=== PATIENT | male | born 1980 | race Caucasian/White ===

== ENCOUNTER 2025-02-21 09:25 | Emergency (ER) | payer OTHER, SELFPAY ==
[2025-02-21] VITALS (20 sets, daily range): BP systolic 89–119; BP diastolic 65–86
--- NOTE | 2025-02-21 09:42 | ED.GENMED ---
History of Present Illness
<Miguel Abdul PA-C - Last Filed: 02/21/25 15:05>
General
Chief Complaint: Substance Abuse
Time Seen by Provider: 02/21/25 09:41
History of Present Illness
History of Present Illness:
44-year-old male presents to the emergency department for evaluation of a reported overdose. Known history of polysubstance abuse, apparently was taken to his methadone clinic this morning apneic and unresponsive where he was referred to the ED.
On arrival the patient is responsive only to painful stimuli, according to a close friend he used heroin most recently at 630 today. Patient when aroused also admits to '14 mg of Klonopin or so'. He states that he took at least 4 mg of Klonopin
this morning alone. Denies SI.
Past History
<Miguel Abdul PA-C - Last Filed: 02/21/25 15:05>
Past History
ED Past Medical History: Other
Social History
Tobacco: Smoker
Alcohol: None
Drug: Former user
Personal: Single
Living: with family
Family History
Family History: Negative Diabetes or CAD
Review of Systems
<Miguel Abdul PA-C - Last Filed: 02/21/25 15:05>
Review of Systems
Allergies reviewed?: Yes
All Other Systems: ROS reviewed and negative except as documented in HPI and ROS
Phy Exam
<Miguel Abdul PA-C - Last Filed: 02/21/25 15:05>
Physical Exam
Physical Exam:
GEN: Well appearing, NAD, WDWN
HEENT: Pinpoint pupils, oral mucosa moist, no scleral icterus
Cardiac: Bradycardic, regular
Lung: Bradycardia apneic and hypopneic, globally clear lungs with transmitted upper airway sounds
MSK: No gross deformity or injuries
Skin: Good color, no pallor or jaundice, no rashes
Neuro: Somnolent, initially arousable to forceful tactile stimuli, moving all extremities when agitated
Psych: Calm, cooperative
Course
<Miguel Abdul PA-C - Last Filed: 02/21/25 15:05>
Orders/Labs/Results
Orders:
Orders
02/21/25 09:37
Naloxone [Narcan] 2 mg .ROUTE .STK-MED ONE
02/21/25 09:42
Electrocardiogram (*1) Urgent
Reason for Study: QTc Monitoring
EKG- Treatment ONCE
02/21/25 09:50
Naloxone [Narcan] 0.4 mg IV NOW STA
02/21/25 Lunch
NPO
Allow oral meds: No
Allow clear liquids: No
02/21/25 10:21
0.9% Sodium Chloride 1000 ml [Nss] 1,000 ml IV BOLUS
02/21/25 10:24
Complete Blood Count/With Diff Urgent
Comprehensive Metabolic Panel Urgent
Abnormal Lab Results
02/21/25
10:24
Carbon Dioxide 31 H mmol/L
(22-30)
BUN 21 H mg/dl
(9-20)
Glucose 116 H mg/dl
(70-99)
ALT 72 H U/L
(0-50)
02/21/25 10:24
02/21/25 10:24
Vital Signs
Initial and Last Documented VS:
Initial Vital Signs
Pulse Resp BP Pulse Ox
52 12 108/66 100
02/21/25 09:32 02/21/25 09:32 02/21/25 09:32 02/21/25 09:32
Last Documented Vital Signs
Pulse Resp BP Pulse Ox
49 12 111/73 98
02/21/25 14:40 02/21/25 14:40 02/21/25 14:30 02/21/25 14:40
<Kye Schaeffer MD - Last Filed: 02/21/25 15:46>
Orders/Labs/Results
Orders:
Orders
02/21/25 09:37
Naloxone [Narcan] 2 mg .ROUTE .STK-MED ONE
02/21/25 09:42
Electrocardiogram (*1) Urgent
Reason for Study: QTc Monitoring
EKG- Treatment ONCE
02/21/25 09:50
Naloxone [Narcan] 0.4 mg IV NOW STA
02/21/25 Lunch
NPO
Allow oral meds: No
Allow clear liquids: No
02/21/25 10:21
0.9% Sodium Chloride 1000 ml [Nss] 1,000 ml IV BOLUS
02/21/25 10:24
Complete Blood Count/With Diff Urgent
Comprehensive Metabolic Panel Urgent
Abnormal Lab Results
02/21/25
10:24
Carbon Dioxide 31 H mmol/L
(22-30)
BUN 21 H mg/dl
(9-20)
Glucose 116 H mg/dl
(70-99)
ALT 72 H U/L
(0-50)
02/21/25 10:24
02/21/25 10:24
Vital Signs
Initial and Last Documented VS:
Initial Vital Signs
Pulse Resp BP Pulse Ox
52 12 108/66 100
02/21/25 09:32 02/21/25 09:32 02/21/25 09:32 02/21/25 09:32
Last Documented Vital Signs
Pulse Resp BP Pulse Ox
49 12 111/73 98
02/21/25 14:40 02/21/25 14:40 02/21/25 14:30 02/21/25 14:40
Procedures
<Miguel Abdul PA-C - Last Filed: 02/21/25 15:05>
IV Access
Indication: Emergent access required
Performed by:: Miguel Abdul PA-C
Site:: R basilic
Gauge:: 20
Ultrasound Guidance: Yes
<Miguel Abdul PA-C - Last Filed: 02/21/25 15:05>
MDM/Problems Addressed
MDM/Problems Addressed:
Due to somnolence and apnea the patient was ultimately administered a small dose of naloxone which did improve his mental status. He was observed in the ED for extended period of time and did not require further naloxone. He was offered resources
through crisis and B cares but declined these. He denies suicidal or homicidal ideation or any desire to go to rehab or detox at this point. Ultimately discharged home
<Miguel Abdul PA-C - Last Filed: 02/21/25 15:05>
*Pulse Oximetry
SaO2: 100
Oxygen Mode of Delivery: Room air
Patient hypoxic: no
*Critical Care Note
Total Time (30-74mins, 75-104mins- exclusive of procedures): Not Applicable
<Miguel Abdul PA-C - Last Filed: 02/21/25 15:05>
Update Note
Update Note:
0951: Patient placed on end-tidal, noted to be markedly hypercapnic and unresponsive to forceful tactile stimuli, given 0.4 mg of naloxone with immediate improvement in respiratory status
1125: Pt remains somnolent, difficult to arouse however maintaining airway, ETCO2 adequate
ED Attending Note
<Miguel Abdul PA-C - Last Filed: 02/21/25 15:05>
-
Portions of this chart may have been created with voice recognition software.� Occasional wrong word or��sound alike� substitutions may have occurred due to the inherent limitations of voice recognition software.
<Kye Schaeffer MD - Last Filed: 02/21/25 15:46>
ED Attending Note
Patient seen and examined by attending physician: Yes
ED Attending Note:
Patient with history of polysubstance abuse, currently on maintenance methadone program, presents to ED after he was found to be difficult to be aroused by his girlfriend this morning. Girlfriend took the patient to his outpatient methadone clinic,
where she was told that patient needs to be seen in ED immediately, due to his depressed mental status. Upon arrival, patient is somnolent, but arousable to loud voice along with physical stimuli. Per girlfriend, patient has admittedly taken
number of medications, including heroin and benzodiazepine. Unable to obtain any further information from the patient.
Physical Exam
General: no apparent distress, not acutely ill. afebrile.
Head: nc/at. eomi
Neck: supple. normal range of motion.
Heart: s1/s2 regular rate and rhythm
Lungs: no acute respiratory distress. clear bilaterally
Abdomen: normal bowel sounds. not tender.
Neuro: somnolent but localizes pain and responds to loud voice. no focal neurological deficits
Skin: no rash
Extremities: no edema.
During initial evaluation, due to worsening mental status, requiring more frequent physical stimulation, decision made to administer 0.4 mg Narcan IV, with transient improvement in symptoms. Pt will be observed closely, as patient is high risk for
respiratory failure.
During extended course of observation in ED, patient becoming more lucid and able to stay awake without prompting. Patient declined evaluation by [facility] or [facility] for drug dependence. As such, decision made to discharge patient home,
to the care of his significant other, with recommendation to stop using illicit medications or increased dose of prescribed sedative medication, as he may have poor outcome in the future, i.e. apneic events versus . Patient expressed
understanding, at time of discharge.
Critical care statement: A total of 40 minutes of critical care time was provided for this patient. This includes management of unstable vital signs, evaluation of the patient at bedside, reviewing the patient's pertinent medical records, review of
old EKGs and review of pertinent medical records. This time with separate from time utilized to perform the aforementioned documented procedures
Discharge Plan
Departure
Patient Disposition: Home (Routine Discharge)
Date of Disposition: 02/21/25
Time of Disposition: 14:37
Patient with high blood pressure during this ER visit?: No
Discharge Problem:
Opiate overdose, Benzodiazepine overdose
Instructions: Polysubstance Use Disorder (DC)
Prescriptions:
No Action
methadone 10 MG tablet
60 mg PO DAILY
Referrals:
[facility] Iii,Teofilo Cisneros [Other]
UNKNOWN - PT NOT,INTERVIEWE [Family Provider]
Interventions
Interventions:
*Risk Screen - Suicide Last Done: 02/21/25 14:47
*General Assessment Last Done: 02/21/25 10:16
*Neglect/Abuse Screening Last Done: 02/21/25 10:36
*ED- Fall Risk Assessment Last Done: 02/21/25 10:16
*ED COVID-19 Vaccine History Last Done: 02/21/25 10:16
*ED Influenza Vaccine History Last Done: 02/21/25 10:16
*Nursing Disposition Last Done: 02/21/25 14:47
ED-Psychological Assessment Last Done: 02/21/25 12:09
Discharge Date and Time
Discharge Date/Time: 02/21/25 15:06
Print Language: KIS[place]IL[place]
[2025-02-21] MEDS: NARCAN 0.4 MG IV (09:50)
--- NOTE | 2025-02-21 10:01 | EDRN ---
Arrives slumped over in a w/ch from home. Hx of opiate/ clonopin misuse. Pt has some drug paraphanelia in his pockets which were given to security. Placed on stretcher and pt woke briefly stating he refuses to allow us to use NARCAN. Pt aware that
if his resp status stopped he would get NARCAN to help him resume breathing. Monotor placed - sinus rhythm to chary cardia. Unable to place PIV x 2 attempts. US guided and a 20 g was placed. Labs obtained. Pt had depressed resp anPt restless..and
it is difficult d unable to rouse using painful stimuli. 0.4 mg NARCAN administered as per SHELBY Abdul with improved resp status . ETCO2 monitored. POX monitored . O2 @3L in place.
[2025-02-21] MEDS: NSS 1000 IV (10:23)
[2025-02-21 10:37] LABS: Hematocrit 46.3 % (39.0-52.0); Hemoglobin 15.3 g/dL (13.0-18.0); Mean Corp Hgb Conc. 33.0 g/dL (33.0-37.0); Mean Corpuscular Volume 91.3 fL (80.0-94.0); Nucleated Red Blood Cells % 0 % (-); Platelet Count 221 10^3/uL (130-400); Red Cell Dist. Width 12.8 % (11.5-14.5)
[2025-02-21 11:34] LABS: ALT (SGPT) 72 U/L (0-50); AST (SGOT) 50 U/L (17-59); Albumin 4.9 g/dl (3.5-5.0); Alkaline Phosphatase 61 U/L (38-126); Blood Urea Nitrogen 21 mg/dl (9-20); Calcium 9.6 mg/dl (8.4-10.2); Carbon Dioxide 31 mmol/L (22-30); Chloride 100 mmol/L (98-107); Glucose 116 mg/dl (70-99); Potassium 4.6 mmol/L (3.5-5.1); Sodium 140 mmol/L (135-145); Total Protein 8.1 g/dl (6.3-8.2); eGFR > 60.00
== END 2025-02-21 15:06 | disposition home or self-care (01) ==
LOC: EMR 09:25
PROVIDERS: Physician Assistant; EMERGENCY PHYSICIAN Emergency Medicine
DX: T40.1X1A Poisoning by heroin, accidental (unintentional), initial encounter (principal); T42.4X1A Poisoning by benzodiazepines, accidental (unintentional), initial encounter; F11.20 Opioid dependence, uncomplicated; F17.200 Nicotine dependence, unspecified, uncomplicated
CPT/HCPCS: 99291; 96374; 96361; 80053; 85025; 93005

== ENCOUNTER 2025-02-21 23:11 | Emergency (ER) | payer OTHER, SELFPAY ==
[2025-02-21 23:13] VITALS: BP 112/73
[2025-02-21 23:45] VITALS: BMI 23.8
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
[2025-02-22 04:07] VITALS: BP 90/56
[2025-02-22 05:00] VITALS: BP 97/60
[2025-02-22 06:00] VITALS: BP 106/65
[2025-02-22] MEDS: METHADONE 100 MG/10 ML 60 MG PO (06:39)
[2025-02-22 07:00] VITALS: BP 107/70
[2025-02-22 08:00] VITALS: BP 104/70
== END 2025-02-22 11:03 ==
LOC: EMR 23:11
PROVIDERS: EMERGENCY PHYSICIAN Emergency Medicine
DX: F11.20 Opioid dependence, uncomplicated (principal); F15.20 Other stimulant dependence, uncomplicated; F13.20 Sedative, hypnotic or anxiolytic dependence, uncomplicated; F17.200 Nicotine dependence, unspecified, uncomplicated; T40.3X6A Underdosing of methadone, initial encounter; Z91.148 Patient's other noncompliance with medication regimen for other reason; Z91.199 Patient's noncompliance with other medical treatment and regimen due to unspecified reason
CPT/HCPCS: 99285; 80306; 80307